=== PATIENT | female | born 1955 | race Caucasian/White ===

== ENCOUNTER → 2017-04-30 | Outpatient (CLI) | payer BC ==
--- NOTE | 2017-04-30 10:49 | BD ---
EXAMINATION TYPE: MG DEXA axial skeleton. DATE OF EXAM: 04/30/2017 CLINICAL HISTORY: Postmenopausal female Height: 65 inches Weight: 129 FRAX RISK QUESTIONS: Alcohol (3 or more units per day): no Family History (Parent hip fracture): no Glucocorticoids (More than 3mos): no (Ex: prednisone, prednisolone, methylprednisolone, dexamethasone, and hydrocortisone). History of Fracture in Adulthood: no Secondary Osteoporosis: 1. Type 1 Diabetes: no 2. Hyperthyroidism: no 3. Menopause before 45: no, 48 4. Malnutrition: no 5. Chronic liver disease: no Rheumatoid Arthritis: no Current Tobacco Use: no RISK FACTORS HISTORY OF: Family History of Osteoporosis: none recorded Active: yes Diet low in dairy products/other sources of calcium: no Postmenopausal woman: yes Take estrogen and/or progesterone medications: not now How long: about 9 months Lost more than 2 inches in height since high school: no Frequent falls: no Poor Health: no Hyperparathyroidism: no Adrenal Insufficiency: no MEDICATIONS: Prednisone or other steroids: no Thyroid Medications: no Osteoporosis Medications: no Additional Medications: none EXAM MEASUREMENTS: Bone mineral densitometry was performed using the [employer] System. Bone mineral density as measured about the Lumbar spine is: ----- L1-L4(G/cm2): 0.809 T Score Values are as follows: ----- L2: -3.5 ----- L3: -2.9 ----- L4: -3.0 ----- L1-L4: -3.1 Bone mineral density not previously done at this facility...done previously at office of a physician Bone mineral density about the R hip (g/cm2): 0.759 Bone mineral density about the L hip (g/cm2): 0.718 T Score values are as follows: -----R Neck: -2.0 -----L Neck: -2.3 -----R Total: -2.2 -----L Total: -2.4 Bone mineral density not previously done at this facility; previously done at office of a physician IMPRESSION: Osteoporosis (T Score less than -2.5) as noted by T Score values in the low back. There is increased fracture risk and therapy is usually indicated based on age. Re-Screen 1-2 years. NOTE: T-SCORE=SD OF THE YOUNG ADULT MEAN.
== END | disposition home or self-care (01) ==
LOC: RADBDWWP 09:11
PROVIDERS: ATTEND Internal Medicine
DX: M81.0 Age-related osteoporosis without current pathological fracture (principal)
CPT/HCPCS: 77080

== ENCOUNTER → 2017-12-30 | Outpatient (CLI) | payer BC ==
--- NOTE | 2017-12-31 13:35 | MM ---
Reason for exam: screening (asymptomatic). Last mammogram was performed 3 years and 8 months ago. History: Patient is postmenopausal. Family history of breast cancer in maternal aunt at age 60. Took estrogen for 9 months. Physical Findings: A clinical breast exam by your physician is recommended on an annual basis and results should be correlated with mammographic findings. MG 3D Screening Mammo W/Cad Bilateral CC and MLO view(s) were taken. Prior study comparison: May 04, 2014, bilateral MG screening mammo w CAD. August 29, 2011, CAD bilateral diagnostic mammogram. The breast tissue is heterogeneously dense. This may lower the sensitivity of mammography. Finding: There are typically benign round calcifications in both breasts. There is no discrete abnormality. ASSESSMENT: Negative, BI-RAD 1 RECOMMENDATION: Routine screening mammogram of both breasts in 1 year.
== END | disposition home or self-care (01) ==
LOC: RADMAMWWP 08:59
PROVIDERS: ATTEND Obstetrics & Gynecology
DX: Z12.31 Encounter for screening mammogram for malignant neoplasm of breast (principal)
CPT/HCPCS: 77063; 77067

== ENCOUNTER → 2019-02-26 | Outpatient (CLI) | payer BC ==
--- NOTE | 2019-03-01 13:18 | MM ---
Reason for exam: screening (asymptomatic). Last mammogram was performed 1 year and 2 months ago. History: Patient is postmenopausal. Family history of breast cancer in maternal aunt at age 60. Took estrogen for 9 months. Physical Findings: A clinical breast exam by your physician is recommended on an annual basis and results should be correlated with mammographic findings. MG 3D Screening Mammo W/Cad Bilateral CC and MLO view(s) were taken. Prior study comparison: December 30, 2017, bilateral MG 3d screening mammo w/cad. May 04, 2014, bilateral MG screening mammo w CAD. The breast tissue is heterogeneously dense. This may lower the sensitivity of mammography. Multiple scattered focal asymmetries are unchanged. Possibly 1.5cm mass or cyst right upper outer quadrant posteriorly. ASSESSMENT: Incomplete: need additional imaging evaluation, BI-RAD 0 RECOMMENDATION: Special view mammogram and ultrasound of the right breast. (3D) [facility] will attempt to contact patient to return for supplemental views and ultrasound.
== END ==
LOC: RADMAMWWP 11:18
PROVIDERS: ATTEND Obstetrics & Gynecology
DX: Z12.31 Encounter for screening mammogram for malignant neoplasm of breast (principal)
CPT/HCPCS: 77063; 77067

== ENCOUNTER → 2019-03-04 | Outpatient (CLI) | payer BC ==
--- NOTE | 2019-03-04 08:34 | MM ---
Reason for exam: additional evaluation requested from abnormal screening. Last mammogram was performed less than 1 month ago. History: Patient is postmenopausal. Family history of breast cancer in maternal aunt at age 60. Taking estrogen for 9 months beginning at age 63. Taking other hormone beginning at age 63. Physical Findings: Nurse did not find any significant physical abnormalities on exam. MG 3D Work Up W/Cad RT Spot compression CC, spot compression MLO, and ML view(s) were taken of the right breast. Prior study comparison: February 26, 2019, bilateral MG 3d screening mammo w/cad. December 30, 2017, bilateral MG 3d screening mammo w/cad. Nodule upper outer quadrant right breast 8cm from nipple. These results were verbally communicated with the patient and result sheet given to the patient on 03/04/19. ASSESSMENT: Incomplete: need additional imaging evaluation, BI-RAD 0 RECOMMENDATION: Ultrasound of the right breast.
--- NOTE | 2019-03-04 08:36 | USB ---
Reason for exam: additional evaluation requested from abnormal screening. History: Patient is postmenopausal. Family history of breast cancer in maternal aunt at age 60. Taking estrogen for 9 months beginning at age 63. Taking other hormone beginning at age 63. US Breast Workup Limited RT Right limited breast ultrasound including focal area of concern, retroareolar and axilla demonstrates no cystic or solid lesion seen. These results were verbally communicated with the patient and result sheet given to the patient on 03/04/19. ASSESSMENT: Probably benign, BI-RAD 3 RECOMMENDATION: Follow-up diagnostic mammogram of the right breast in 6 months.
== END | disposition home or self-care (01) ==
LOC: RADMAMWWP 06:49
PROVIDERS: ATTEND Obstetrics & Gynecology
DX: R92.8 Other abnormal and inconclusive findings on diagnostic imaging of breast (principal)
CPT/HCPCS: 77061; 77065

== ENCOUNTER → 2020-12-27 | Outpatient (CLI) | payer MEDICARE ==
[2020-12-27 16:51] LABS: Basophils # (A) 0.02 X 10*3/uL (0.00-0.10); Basophils % (A) 0.3 %; Eosinophils # (A) 0.01 X 10*3/uL (0.04-0.35); Eosinophils % (A) 0.2 %; HCT 43.6 % (37.2-46.3); HGB 14.2 g/dL (12.0-15.0); Lymphocytes # (A) 0.97 X 10*3/uL (0.90-5.00); Lymphocytes % (A) 16.9 %; MCH 30.7 pg (27.0-32.0); MCHC 32.6 g/dL (32.0-37.0); MCV 94.4 fL (80.0-97.0); Mean Platelet Volume 9.6 fL (9.5-12.2); Monocytes # (A) 0.56 X 10*3/uL (0.20-1.00); Monocytes % (A) 9.8 %; Neutrophils # (A) 4.17 X 10*3/uL (1.80-7.70); Neutrophils % (A) 72.6 %; Platelet Count 194 X 10*3/uL (140-440); RBC 4.62 X 10*6/uL (4.10-5.20); RDW 12.7 % (11.5-14.5); WBC 5.74 X 10*3/uL (4.50-10.00)
[2020-12-27 18:56] LABS: Erythrocyte Sedimentation Rate 11 mm/Hr (0-30)
[2020-12-27 19:52] LABS: C Reactive Protein 0.4 mg/dL (0.0-0.8); Uric Acid 4.2 mg/dL (2.9-7.7)
== END | disposition home or self-care (01) ==
LOC: LABWHC1 10:36
PROVIDERS: ATTEND Podiatrist Foot & Ankle Surgery
DX: M19.90 Unspecified osteoarthritis, unspecified site (principal); B99.9 Unspecified infectious disease
CPT/HCPCS: 36415; 84550; 85025; 85652; 86038; 86140; 86431

== ENCOUNTER → 2022-09-11 | Outpatient (CLI) | payer MEDICARE ==
--- NOTE | 2022-10-15 11:11 | EM ---
EVENT MONITOR The patient was monitored between the and September. The rhythm strip revealed a sinus mechanism with evidence of single PVCs with a pattern of bigeminy at times. No evidence of ventricular tachycardia was noted. No atrial fibrillation was noted. The patient had a short burst of paroxysmal atrial tachycardia, nonsustained. There was an episode of supraventricular rhythm on October 05, , that appears to be paroxysmal atrial tachycardia and nondiagnostic of atrial fibrillation. Symptoms of palpitation correlated with sinus mechanism at times. Symptoms of dizziness correlated with sinus mechanism and at times with single PVCs. CONCLUSIONS: 1. Sinus mechanism baseline rhythm. 2. Single PVCs with episode of bigeminy. 3. Short bursts of paroxysmal atrial tachycardia. 4. Symptoms did not have clear correlation with arrhythmia. MMODL / IJN: [id number] /
== END | disposition home or self-care (01) ==
LOC: RADECHMAIN 08:00
PROVIDERS: ATTEND Internal Medicine
DX: I47.1 Supraventricular tachycardia (principal); R00.2 Palpitations
CPT/HCPCS: 93270

== ENCOUNTER → 2022-11-25 | Outpatient (CLI) | payer MEDICARE ==
--- NOTE | 2022-11-25 11:19 | XR ---
EXAMINATION TYPE: XR lumbar spine 1V DATE OF EXAM: 11/25/2022 COMPARISON: CT abdomen and pelvis 09/29/2015 HISTORY: Back pain x3 weeks TECHNIQUE: Single AP upright view lumbar spine obtained at the referring physician's request FINDINGS: There are 5 lumbar-type vertebral bodies. The pedicles are intact. Some wedge deformity of L2 is not excluded. This was not evident on the CT of 2015. Mild scoliosis is present with the convex ity to the left centered at L3. IMPRESSION: 1. There may be a mild wedge deformity of L2 of indeterminate age.
== END | disposition home or self-care (01) ==
LOC: RADXRMAIN 09:51
PROVIDERS: ATTEND Internal Medicine
DX: M54.50 Low back pain, unspecified (principal)
CPT/HCPCS: 72020

== ENCOUNTER → 2023-11-07 | Outpatient (CLI) | payer MEDICARE ==
--- NOTE | 2023-11-07 15:21 | XR ---
EXAMINATION TYPE: XR lumbar spine 2 or 3V DATE OF EXAM: 11/07/2023 2:48 PM CLINICAL INDICATION:Female, 68 years old with history of M54.50 LOW BACK PAIN, UNSPECIFIED; [facility] COMPARISON: 11/25/2022. TECHNIQUE: XR lumbar spine 2 or 3V - Frontal, lateral and coned in L5-S1 lateral views of the spine. FINDINGS: No evidence of any acute osseous pathology. No evidence of loss of vertebral body height i s seen. There is normal alignment of the lumbar vertebral bodies. Mild scattered disc space narrowing . Multilevel marginal osteophyte formation throughout the visualized spine. There is facet joint arth ropathy throughout the spine. Scattered at least mild neural foraminal stenosis at L5-S1. IMPRESSION: 1. No acute fracture. 2. Moderate multilevel disc degeneration.
== END | disposition home or self-care (01) ==
LOC: RADXRMAIN 14:30
PROVIDERS: ATTEND Internal Medicine
DX: M51.36 Other intervertebral disc degeneration, lumbar region (principal)
CPT/HCPCS: 72100

== ENCOUNTER → 2023-11-26 | Outpatient (CLI) | payer MEDICARE ==
--- NOTE | 2023-11-26 16:33 | US ---
EXAMINATION TYPE: US abdomen complete DATE OF EXAM: 11/26/2023 COMPARISON: CT abdomen and pelvis 09/29/2015 CLINICAL INDICATION: Female, 68 years old with history of R10.32 Left lower quadrant pain; LLQ pain a nd bloating x 1 month. Pt states the pain has subsided TECHNIQUE: Multiple sonographic images of the abdomen are obtained. 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 The intrahepatic portion of the IVC and proximal abdominal aorta are within normal limits. There is no evidence of cholelithiasis. Common bile duct is unremarkable. The visu alized portions of the pancreas are homogenous. The spleen is not visualized likely due to overlying bowel gas. Kidneys are symmetric and free of hydronephrosis. No renal lesions are seen. IMPRESSION: 1. No ultrasound evidence for an acute process. 2. Nonvisualization of the spleen due to overlying bowel gas.
== END | disposition home or self-care (01) ==
LOC: RADUSWWP 07:00
PROVIDERS: ATTEND Internal Medicine
DX: R10.32 Left lower quadrant pain (principal)
CPT/HCPCS: 76700

== ENCOUNTER → 2023-11-26 | Outpatient (CLI) | payer MEDICARE ==
--- NOTE | 2023-11-26 16:03 | US ---
EXAMINATION TYPE: US transvaginal DATE OF EXAM: 11/26/2023 COMPARISON: CT abdomen pelvis 09/29/2015 CLINICAL INDICATION: Female, 68 years old with history of R10.32 Left lower quadrant pain; LLQ pain TECHNIQUE: Transvaginal (TV). Date of LMP: Unknown, pt states around 15 years EXAM MEASUREMENTS: Uterus: 4.9 x 4.3 x 2.5 cm Endometrial Stripe: 0.27 cm Right Ovary: Not seen Left Ovary: Not seen 1. Uterus: Anteverted wnl 2. Endometrium: wnl 3. Right Ovary: Not seen due to bowel gas 4. Left Ovary: Not seen due to bowel gas 5. Bilateral Adnexa: wnl 6. Posterior cul-de-sac: wnl Anteverted heterogenous uterus demonstrated. No focal lesion definitively visualized. Endometrium torito ears within normal thickness but is limited visualization. No free fluid. Both ovaries are nonvisuali zed due to overlying bowel gas. IMPRESSION: 1. No ultrasound evidence for an acute process. 2. Heterogenous appearance of the uterus which could be related to small fibroids versus adenomyosis . This could be further evaluated with MRI pelvis as clinically indicated. 3. Nonvisualization of both ovaries due to overlying bowel gas.
== END | disposition home or self-care (01) ==
LOC: RADUSWWP 06:57
PROVIDERS: ATTEND Internal Medicine
DX: R10.32 Left lower quadrant pain (principal)
CPT/HCPCS: 76830

== ENCOUNTER → 2023-12-16 | Outpatient (CLI) | payer MEDICARE ==
--- NOTE | 2023-12-27 09:49 | P.HOLTER ---
48 Hour Holter monitor note: Patient wore a Holter monitor for 48 hrs from 12/16/23-12/19/23. Findings: Patient's baseline heart rate was normal sinus rhythm. There were no signficant atrial fibrillation, atrial flutter, or ventricular tachycardia episodes. There were no significant pauses greater than 2 seconds. Patient had multiple episodes of brief nonsustained ventricular tachycardia longest being 5 beats and fastest 211 bpm Frequent PVCs with 2.3% PVC burden 2 patient activated events which corresponded with normal sinus rhythm Conclusions: 48 hour Holter monitor showing normal sinus rhythm, frequent PVCs with 2.3% PVC burden, frequent nonsustained ventricular tachycardia longest lasting 5 beats. 2 patient activated events corresponded with normal sinus rhythm.
--- NOTE | 2023-12-30 08:04 | HM ---
30 Day Event monitor note: Patient wore an event monitor for 16 days from 11/21/23-12/20/23. Findings: Patient's baseline heart rate was normal sinus rhythm. There were no significant atrial fibrillation, atrial flutter, or ventricular tachycardia episodes. There were no significant pauses greater than 2 seconds. there were rare PACs and PVCs lot representing less than 1% of the time Lowest heart rate 53 bpm Average heart rate 74 bpm Highest heart rate 103 bpm There were 3 patient activated events including one lightheaded episode and one syncopal episode which both corresponded with normal sinus rhythm Conclusions: 30 day event monitor worn for 16 days showing normal sinus rhythm and rare PACs and PVCs. 3 patient activated events including one syncopal episode and one lightheaded episode corresponding with normal sinus rhythm. [facility]
== END | disposition home or self-care (01) ==
LOC: RADECHMAIN 07:42
PROVIDERS: ATTEND Psychiatry & Neurology Neurology
DX: R00.2 Palpitations (principal); I47.20 Ventricular tachycardia, unspecified; I49.3 Ventricular premature depolarization
CPT/HCPCS: 93225; 93226

== ENCOUNTER → 2025-01-04 | Outpatient (CLI) | payer MEDICARE ==
[2025-01-04 23:57] LABS: Anti-DNA, DS unit 1.0 IU/mL; Cyclic Citrull Pep IgG Unit <1.5 U/mL (<=3.9); DNA Double-Stranded Negative (Negative)
== END | disposition home or self-care (01) ==
LOC: LABWHC1 14:07
PROVIDERS: ATTEND Internal Medicine
DX: M25.561 Pain in right knee (principal); R79.9 Abnormal finding of blood chemistry, unspecified
CPT/HCPCS: 36415; 83516; 86200; 86225; 86235; 86431